=== PATIENT | female | born 1965 | race Caucasian/White ===

== ENCOUNTER 2024-03-27 11:19 | Emergency (ER) | payer OTHER, SELFPAY ==
[2024-03-27 11:23] VITALS: BP 156/96
[2024-03-27 11:39] VITALS: BP 121/93
--- NOTE | 2024-03-27 11:53 | ED.GENMED ---
History of Present Illness
General
Chief Complaint: Abdominal Symptoms
Source: patient
Time Seen by Provider: 03/27/24 11:43
History of Present Illness
History of Present Illness:
58yoF with a history of hypertension, hyperlipidemia, type 2 diabetes, and hypothyroidism presenting for evaluation of vomiting. Patient went to a concert last night and had 1 alcoholic beverage. She woke up this morning around 8am with dizziness.
The dizziness was quite severe and resolved after about a minute. She has a history of vertigo and denies any dizziness currently. She reports nausea throughout the day today. She has had 2 episodes of vomiting and 1 episode of diarrhea. She also
reports feeling shaky. She believes that she has food poisoning. She denies any fevers, headache, chest pain, shortness of breath, abdominal pain.
Phy Exam
General Physical Exam
General Presentation: well appearing and no apparent distress
General age: appears stated age
General Skin: warm and dry
General Habitus: normal
General Mental: alert
General Hydration: appears well hydrated
ENT Exam
ENT Exam: TM's normal
Eye Exam
Eye Exam: PERRL
Cardiovascular Exam
Cardiovascular Exam: regular rate/rhythm
Pulmonary Exam
Pulmonary Exam: lungs clear, no respiratory distress, no crackles and no wheezing
Gastrointestinal Exam
Gastrointestinal Exam: soft, non distended and tender (Minimal tenderness in epigastrium)
Neurological Exam
Neurological Exam: alert and no motor deficits
Gurdeep Coma Scale
Eye Opening: Spontaneous
Verbal Response: Oriented
Motor Response: Obeys Commands
GCS Total Score: 15
Skin Exam
Skin Exam: normal color and warm/dry
Psychiatric Exam
Psychiatric Exam: normal mood/affect
Course
Orders/Labs/Results
Orders:
Orders
03/27/24 11:52
0.9% Sodium Chloride 1000 ml [Nss] 1,000 ml IV BOLUS
Famotidine [Pepcid] 20 mg IV NOW STA
Ondansetron Injectable [Zofran] 4 mg IV NOW STA
03/27/24 12:05
COVID-19 Antigen Urgent
Source: Nasal Swab
Complete Blood Count/With Diff Urgent
Comprehensive Metabolic Panel Urgent
Lipase Urgent
Abnormal Lab Results
03/27/24
12:05
MPV 10.6 H fL
(7.4-10.4)
Absolute Neuts (auto) 7.4 H 10^3/uL
(1.4-6.5)
Absolute Lymphs (auto) 1.0 L 10^3/uL
(1.2-3.4)
Neutrophils % 82.3 H %
(42.2-75.2)
Lymphocytes % 10.6 L %
(20.5-51.1)
Glucose 132 H mg/dl
(70-99)
03/27/24 12:05
03/27/24 12:05
Vital Signs
Initial and Last Documented VS:
Initial Vital Signs
Temp Pulse Resp BP Pulse Ox
98.6 F 84 16 156/96 99
03/27/24 11:23 03/27/24 11:23 03/27/24 11:23 03/27/24 11:23 03/27/24 11:23
Last Documented Vital Signs
Temp Pulse Resp BP Pulse Ox
98.6 F 71 16 129/67 95
03/27/24 11:23 03/27/24 12:41 03/27/24 12:41 03/27/24 14:41 03/27/24 12:41
MDM/Problems Addressed
Differential Diagnosis Includes:
58yoF here with vomiting and diarrhea that began this morning. Also had an episode of dizziness lasting 1 minute this morning which has resolved. Hx of vertigo. No chest or abdominal pain. Patient is afebrile and hemodynamically stable. She is
well-appearing in no acute distress. Abdominal exam benign. Differential diagnosis includes but is not limited to: Gastroenteritis, electrolyte abnormality, DAX, dehydration
Initial ED plan: Check abdominal labs and COVID swab. IV Zofran, Pepcid, and fluid bolus for symptoms.
*Critical Care Note
Total Time (30-74mins, 75-104mins- exclusive of procedures): Not Applicable
Update Note
Update Note:
Labs unremarkable including normal white count, electrolytes, renal function, LFTs. COVID swab negative. Patient feeling improved on reassessment. She was able to tolerate p.o. challenge and ambulated to the bathroom independently. She is stable
for discharge. Prescription provided for Zofran and supportive care discussed. Advised close follow-up with PCP and ED return precautions discussed. She expressed understanding is agreeable to plan. Patient discharged stable condition.
ED Attending Note
-
Portions of this chart may have been created with voice recognition software.� Occasional wrong word or��sound alike� substitutions may have occurred due to the inherent limitations of voice recognition software.
Discharge Plan
Departure
Patient Disposition: Home (Routine Discharge)
Date of Disposition: 03/27/24
Time of Disposition: 14:43
Patient with high blood pressure during this ER visit?: No
Discharge Problem:
Nausea & vomiting
Instructions: Nausea and Vomiting, Adult (DC)
Prescriptions:
New
ondansetron 4 mg tablet,disintegrating
4 mg PO Q6H PRN (Reason: nausea and vomiting) Qty: 20 0RF
Referrals:
UNKNOWN - PT DOES,NOT KNOW [Family Provider] -
Activity Restrictions/Additional Instructions:
Take Zofran as needed for nausea. Drink plenty of fluids and rest.
Please follow-up with your family doctor. Return to the ER with any new or worsening symptoms.
Interventions
Interventions:
*Risk Screen - Suicide Last Done: 03/27/24 12:41
*General Assessment Last Done: 03/27/24 12:41
*Neglect/Abuse Screening Last Done: 03/27/24 12:41
*ED COVID-19 Vaccine History Last Done: 03/27/24 12:41
*Nursing Disposition Last Done: 03/27/24 15:00
[facility] Assessment Last Done: 03/27/24 12:41
Discharge Date and Time
Discharge Date/Time: 03/27/24 15:01
Print Language: CHINESE
[2024-03-27] MEDS: NSS 1000 IV (12:06)
[2024-03-27] MEDS: ZOFRAN 4 MG IV (12:10)
[2024-03-27] MEDS: PEPCID 20 MG IV (12:10)
[2024-03-27 12:23] LABS: % Basophils 0.4 % (0-2); % Eosinophils 0.8 % (0-6); % Immature Granulocytes 0.3 % (0-0.5); % Lymphocytes 10.6 % (20.5-51.1); % Monocytes 5.6 % (1.7-9.3); % Neutrophils 82.3 % (42.2-75.2); Absolute Eosinophils 0.1 10^3/uL (0-0.7); Absolute Monocytes 0.5 10^3/uL (0.1-0.6); Absolute Neutrophils 7.4 10^3/uL (1.4-6.5); Hematocrit 38.7 % (37.0-47.0); Hemoglobin 13.5 g/dL (12.0-16.0); Mean Corp Hgb Conc. 34.9 g/dL (33.0-37.0); Mean Platelet Volume 10.6 fL (7.4-10.4); Nucleated Red Blood Cells % 0 %; Platelet Count 260 10^3/uL (130-400); Red Blood Cell Count 4.66 10^6/uL (4.20-5.40); Red Cell Dist. Width 12.6 % (11.5-14.5)
[2024-03-27 12:26] LABS: ALT (SGPT) 31 U/L (0-35); AST (SGOT) 23 U/L (14-36); Albumin 4.4 g/dl (3.5-5.0); Alkaline Phosphatase 69 U/L (38-126); Blood Urea Nitrogen 15 mg/dl (7-17); Calcium 9.8 mg/dl (8.4-10.2); Carbon Dioxide 28 mmol/L (22-30); Chloride 103 mmol/L (98-107); Glucose 132 mg/dl (70-99); Lipase 65 U/L (23-300); Sodium 141 mmol/L (135-145); Total Bilirubin 0.9 mg/dl (0.2-1.3); Total Protein 6.7 g/dl (6.3-8.2); eGFR > 60.00
[2024-03-27 12:30] LABS: COVID-19 Antigen Negative (Negative)
[2024-03-27 12:41] VITALS: BP 133/60
[2024-03-27 14:41] VITALS: BP 129/67
== END 2024-03-27 15:01 | disposition home or self-care (01) ==
LOC: EMR 11:19
PROVIDERS: Physician Assistant; EMERGENCY PHYSICIAN Emergency Medicine
DX: R11.2 Nausea with vomiting, unspecified (principal); E03.9 Hypothyroidism, unspecified; E11.9 Type 2 diabetes mellitus without complications; E78.5 Hyperlipidemia, unspecified; I10 Essential (primary) hypertension
CPT/HCPCS: 99284; 96374; 96375; 96361; 80053; 83690; 85025; 87811